=== PATIENT | female | born 2005 | race Caucasian/White ===

== ENCOUNTER 2023-10-28 21:11 | Emergency (ER) | payer OTHER ==
[2023-10-28] MEDS ORDERED: Dexamethasone 10 MG/ML VIAL ONE (21:16)
== END 2023-10-28 21:48 | disposition home or self-care (01) ==
LOC: ERS 21:11
DX: L23.7 Allergic contact dermatitis due to plants, except food (principal); F17.290 Nicotine dependence, other tobacco product, uncomplicated
CPT/HCPCS: 96372; 99283; J1100

== ENCOUNTER 2023-12-24 14:18 | Outpatient (CLI) | payer OTHER | END 2023-12-24 14:19 | disposition home or self-care (01) | LOC: SCSRAD 14:18 | DX: R06.00 Dyspnea, unspecified (principal); F17.200 Nicotine dependence, unspecified, uncomplicated; M41.9 Scoliosis, unspecified | CPT/HCPCS: 71046 ==